=== PATIENT | female | born 2000 | race Two or more races ===

== ENCOUNTER 2021-05-09 14:14 | Emergency (ER) | payer MEDICAID ==
[~2021-05-09] VITALS: Ht 160 cm; Wt 70.8 kg
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
--- NOTE | 2021-05-09 14:30 | NUR ---
on initial exam, the patient denies suicidal ideation.
--- NOTE | 2021-05-09 14:31 | NUR ---
called the security for wanding
--- NOTE | 2021-05-09 14:35 | NUR ---
URINE SPECIMEN COLLECTED AND SENT TO LAB.
--- NOTE | 2021-05-09 14:42 | NUR ---
SECURITY AT BEDSIDE FOR WANDING.
[2021-05-09 14:54] LABS: BILIRUBIN,URINE Negative (NEGATIVE); COLOR,URINE YELLOW (YELLOW); LEUKOCYTE ESTERASE ,URINE Negative (NEGATIVE); NITRITE, URINE Negative (NEGATIVE); PROTEIN,URINE Negative (NEGATIVE); UGLUCOSE Negative (NEGATIVE); UROBILINOGEN,URINE 0.2 EU/dL (0.2)
[2021-05-09 15:10] LABS: BACTERIA,URINE Few /HPF (None Seen)
[2021-05-09 15:12] LABS: BASOPHILS % (AUTO) 0.5 % (0.0-2.0); HEMATOCRIT 39 % (33-45); HEMOGLOBIN 12.8 g/dL (11.5-14.8); LYMPHOCYTES # (AUTO) 1.5 K/uL (0.8-4.8); LYMPHOCYTES % (AUTO) 15.1 % (20.0-44.0); MEAN CORPUSCULAR HGB CONC 33 g/dl (31.0-36.0); MEAN CORPUSCULAR VOLUME 81 fL (82-100); MONOCYTES # (AUTO) 0.8 K/uL (0.1-1.30); NEUTROPHILS # (AUTO) 7.4 K/uL (1.8-8.9); NEUTROPHILS % (AUTO) 76.4 % (43.0-81.0); PLATELET COUNT (AUTO) 498 K/uL (150-450); RED BLOOD CELL COUNT(AUTO) 4.84 MIL/uL (4.0-5.2); WHITE BLOOD COUNT (AUTO) 9.6 K/uL (4.3-11.0)
[2021-05-09 15:22] LABS: CALCIUM, SERUM 9.5 mg/dL (8.5-10.1); CARBON DIOXIDE 24 mmol/L (21-32); CHLORIDE 99 mmol/L (98-107); CREATININE 0.9 mg/dL (0.6-1.3); GLUCOSE 97 mg/dL (74-106); SODIUM SERUM 139 mmol/L (136-145); UREA NITROGEN, BLOOD 6 mg/dL (7-18)
[2021-05-09 15:27] LABS: ALANINE AMINOTRANSFERASE 31 U/L (12-78); ALBUMIN 4.8 g/dL (3.4-5.0); ALCOHOL, BLOOD < 3 mg/dL (0-0); ALKALINE PHOSPHATASE 78 U/L (46-116); ASPARTATE AMINOTRANSFERASE 28 U/L (15-37); BILIRUBIN,DIRECT 0.1 mg/dL (0.0-0.2); BILIRUBIN,TOTAL 0.4 mg/dL (0.2-1.0); TOTAL PROTEIN, SERUM 9.4 g/dL (6.4-8.2)
[2021-05-09 15:29] LABS: ACETAMINOPHEN < 10 ug/ml (10-30)
[2021-05-09] MEDS ORDERED: POTASSIUM CHLORIDE 20 MEQ TAB.PRT.SR PO ONE (15:57)
[2021-05-09] MEDS: POTASSIUM CHLORIDE 20 MEQ TAB.PRT.SR PO ONE (16:02)
[2021-05-09 16:15] LABS: THYROID STIMULATING HORMONE 1.409 uIU/mL (0.358-3.74)
[2021-05-09] MEDS ORDERED: LORAZEPAM 1 MG TABLET ONE (16:58)
[2021-05-09] MEDS: LORAZEPAM 1 MG TABLET PO ONE (17:04)
--- NOTE | 2021-05-09 18:56 | NUR ---
HERNESTO ROSENBERG CRISIS [employer] TIER AT BEDSIDE.
--- NOTE | 2021-05-09 22:19 | NUR ---
PABLO OLIVERW PAGED FOR PSYCH EVAL.
--- NOTE | 2021-05-10 00:03 | NUR ---
PABLO HEALTHCARE TECHNICIAN AT BEDSIDE TO GINGER YEAGER.
--- NOTE | 2021-05-10 00:19 | NUR ---
PT CLEARED FOR PSYCH PER PABLO RN EVENT MARKETING COORDINATOR. PT CALM AND COOPERATIVE AT THIS TIME.
--- NOTE | 2021-05-10 00:39 | NUR ---
Patient discharged to home in stable condition. Written and verbal after care instructions given. Patient verbalizes understanding of instruction. Pt aaox4 no acute distress noted, resp even and unlabored. pt denies si/hi. pt mom at bedside to take pt home.
[2021-05-10 00:40] VITALS: BP 121/63
== END 2021-05-10 00:41 | disposition home or self-care (01) ==
LOC: ER 14:18
DX: F31.9 Bipolar disorder, unspecified (principal); F12.10 Cannabis abuse, uncomplicated; E87.6 Hypokalemia; R31.9 Hematuria, unspecified
CPT/HCPCS: 36415; 80048-TC; 80076-TC; 81001; 84443-TC; 84702-TC; 85025-TC; G0480